=== PATIENT | female | born 1970 | race Caucasian/White ===

== ENCOUNTER 2019-12-16 16:52 | Inpatient (IN) | payer OTHER ==
[~2019-12-16] VITALS: Ht 165.1 cm; Wt 66.2 kg
[2019-12-16 17:09] VITALS: BP 115/66
[2019-12-16] MEDS ORDERED: BUSPAR30 MG PO (17:12)
[2019-12-16] MEDS ORDERED: ADDERALL 20 MG20 MG PO (17:12)
[2019-12-16] MEDS ORDERED: KLONOPIN1 MG PO (17:12)
[2019-12-16 17:32] LABS: URINE BILIRUBIN NEGATIVE (Negative); URINE BLOOD TRACE (Negative); URINE CLARITY CLEAR; URINE COLOR YELLOW; URINE GLUCOSE-RANDOM NEGATIVE (Negative); URINE KETONES NEGATIVE (Negative); URINE LEUKOCYTES-REFLEX 1+ (Negative); URINE NITRITE-REFLEX NEGATIVE (Negative); URINE PROTEIN NEGATIVE (Negative); URINE SPECIFIC GRAVITY <= 1.005 (1.005-1.030); URINE UROBILINOGEN 0.2 E.U./dl (0.2-1.0)
[2019-12-16 17:37] LABS: SQUAMOUS 4-10 Moderate /LPF (0-3); URINE WBC-REFLEX 0-5 Rare /HPF (0-5)
[2019-12-16 17:38] LABS: CASTS None Seen /LPF (None Seen); CRYSTALS None Seen /LPF (None Seen); MUCUS None Seen strn/LPF (None Seen); URINE RBC 0-2 Rare /HPF (0-2)
[2019-12-16 17:41] LABS: ABSOLUTE BASOPHILS 0.2 thou/uL (0.0-0.2); ABSOLUTE EOSINOPHILS 0.2 thou/uL (0.0-0.7); ABSOLUTE LYMPHOCYTES 2.3 thou/uL (0.8-5.3); ABSOLUTE NEUTROPHILS 9.5 thou/uL (1.6-8.1); BASOPHILS 1.2 %; EOSINOPHILS 1.2 %; HEMATOCRIT 36.9 % (37.0-47.0); HEMOGLOBIN 12.2 gm/dL (12.0-15.0); LYMPHOCYTES 17.6 %; MCH 29.8 pg (26.0-34.0); MCV 90.3 fL (80.0-100.0); MONOCYTES 7.5 %; MPV 8.1 fl. (7.2-11.1); NUCLEATED RBCS 0 /100WBC; PLATELET COUNT* 278 thou/uL (150-400); POLYS 72.5 %; RBC 4.09 mil/uL (4.20-5.00); RDW-CV 13.4 % (10.5-14.5); WBC 13.1 thou/uL (4.0-11.0)
[2019-12-16 17:50] LABS: CALCIUM 10.1 mg/dL (8.5-10.1); CREATININE 0.8 mg/dL (0.6-1.3); POTASSIUM 3.3 mmol/L (3.5-5.1)
[2019-12-16 17:54] LABS: ALBUMIN 3.1 g/dL (3.4-5.0); TOTAL BILIRUBIN 0.5 mg/dL (<0.1-1.0); TOTAL PROTEIN 6.9 g/dL (6.4-8.2)
[2019-12-16 20:27] VITALS: BP 100/56
[2019-12-16 20:30] VITALS: BP 108/68
[2019-12-17 07:45] VITALS: BP 105/65
--- NOTE | 2019-12-17 08:27 | EKG ---
[place] [address] ELECTROCARDIOGRAM REPORT Name: ENID BLACKBURN Room: [address] ADM IN ..#: [id number] Admission: 12/16/19 Attend Phys: William Real Discharge: Date of : 66 Date of Service: 12/16/19 1721 Report #: [id number] THIS REPORT FOR: //name// [facility] ED Test Date: 2019-12-16 Test Time: 17:21:51 Pat Name: ENID BLACKBURN Department: Room: [facility] Gender: F Director Telehealth: : 1970 Requested By: Massimo Claros Order Number: [id number] MD: Ken Cano Measurements Intervals [place] Rate: 86 P: 43 W[place]: 169 QRS: 36 QRSD: 89 T: 17 QT: 349 QTc: 418 Interpretive Statements Sinus rhythm RSR' in V1 or V2, right VCD or RVH Borderline T abnormalities, inferior leads Baseline wander in lead(s) II,III,aVR,aVL,aVF,V3,V5 No previous ECG available for comparison Electronically Signed On 12-17-2019 8:27:37 CDT by Ken Cano [email or web address] <ELECTRONICALLY SIGNED> By: Ken Cano MD, FACC 12/17/19 08 20 20 Ken Cano MD, FACC /EPI
[2019-12-17 11:00] LABS: CALCIUM 9.7 mg/dL (8.5-10.1); CREATININE 0.7 mg/dL (0.6-1.3); POTASSIUM 3.6 mmol/L (3.5-5.1)
[2019-12-17 11:03] LABS: PHOSPHORUS* 2.7 mg/dL (2.5-4.9)
[2019-12-17 15:51] VITALS: BP 109/67
[2019-12-17 20:00] VITALS: BP 104/72
[2019-12-18 04:30] LABS: HEMATOCRIT 32.9 % (37.0-47.0); HEMOGLOBIN 10.8 gm/dL (12.0-15.0); MCV 91.1 fL (80.0-100.0); MPV 8.3 fl. (7.2-11.1); RBC 3.61 mil/uL (4.20-5.00); RDW-CV 13.3 % (10.5-14.5); WBC 5.1 thou/uL (4.0-11.0)
[2019-12-18 04:51] LABS: CALCIUM 9.6 mg/dL (8.5-10.1); CREATININE 0.7 mg/dL (0.6-1.3); MAGNESIUM 1.9 mg/dL (1.8-2.4)
[2019-12-18 08:00] VITALS: BP 114/73
[2019-12-18] MEDS ORDERED: ACETAMINOPHEN325 M1 PO (14:26)
[2019-12-18] MEDS ORDERED: AUGMENTIN 875-1 EACH PO (14:28)
[2019-12-18] MEDS ORDERED: METRONIDAZOLE500 M4 PO (14:30)
[2019-12-18 14:47] VITALS: BP 104/72
== END 2019-12-18 17:10 | disposition home or self-care (01) | DRG 872 ==
LOC: M.ERS 16:52 → M.TBA-ER 19:25 → M.ORTHSURG 20:33
PROVIDERS: Family Medicine; ADMIT Family Medicine; ATTEND Family Medicine
DX: A41.9 Sepsis, unspecified organism (principal); K57.32 Diverticulitis of large intestine without perforation or abscess without bleeding; N39.0 Urinary tract infection, site not specified; F32.9 Major depressive disorder, single episode, unspecified; F41.9 Anxiety disorder, unspecified; E87.6 Hypokalemia; K59.00 Constipation, unspecified; Z20.828 Contact with and (suspected) exposure to other viral communicable diseases; Z79.899 Other long term (current) drug therapy